=== PATIENT | female | born 1960 | race Caucasian/White ===

== ENCOUNTER 2023-10-07 11:03 | Outpatient (OUT) | payer MEDICARE, SELFPAY ==
--- NOTE | 2023-10-07 11:07 | XR_ITS ---
[address] [address] Patient Name: SONALI JERONIMO MRN: [id number] date: 1960 Sex: F Assigned Patient Location: [facility] Current Patient Location: [facility] Accession/Order Number: [id number] Exam Date: 10/07/2023 11:30 Report Date: 10/07/2023 13:51 At the request of: OJ FAYE Procedure: XR DEXA axial skeleton EXAMINATION: XR DEXA axial skeleton HISTORY: Estrogen Deficiency E28.39 COMPARISON: DEXA bone densitometry 02/02/2021 TECHNIQUE: Dual-energy X-ray absorptiometry (DXA) was performed. FINDINGS: FOREARM ANALYSIS: Average bone mineral density is 0.565 g/cm2. T-score (standard deviation relative to young adult mean): -2.1 . -7.3% change since prior study. HIP ANALYSIS: Lowest bone mineral density is within the left femoral neck, 0.670 g/cm2. T-score (standard deviation relative to young adult mean): -2.6 . -1.7% change since prior study. XR/XR DEXA axial skeleton IMPRESSION: [employer] Classification: Osteoporosis - High Fracture Risk Electronically authenticated by: FRANCISCO MURRELL Date: 10/07/2023 13:51
--- NOTE | 2023-10-07 11:07 | MM_ITS ---
Patient Name: SONALI JERONIMO MR#: [id number] : 1960 Exam Date: 10/07/2023 Ordering Doctor: DR OJ FAYE M.D. RADIOLOGY REPORT PROCEDURE: MM TOMOSYNTHESIS SCREENING BI COMPARISON: MG MAMM SCREEN 3D CULLEN CAD, 02/02/2021. MG MAMM SCREEN CULLEN W CAD, 01/24/2019. MG MAMM CULLEN SCRN W CAD DIG, 11/21/2015. INDICATIONS: Screening Calculator Name NCI Breast Cancer Risk Assessment Tool 5 Year Breast Cancer Risk 1.10% Lifetime Breast Cancer Risk 4.30% Personal Breast Cancer No Personal Ovarian Cancer No Treatments None Family Cancers Grandmother-maternal with breast cancer at age 80; Father with lung cancer at age 67. LOCATION: [facility] BREAST COMPOSITION: Heterogeneously dense,which may obscure small masses. FINDINGS: DIAGNOSTIC CATEGORY 1--NEGATIVE. RIGHT BREAST: No significant suspicious finding. No significant change has occurred. LEFT BREAST: No significant suspicious finding. No significant change has occurred. RECOMMENDATIONS: ROUTINE MAMMOGRAM AND CLINICAL EVALUATION IN 12 MONTHS. PLEASE NOTE: A NORMAL MAMMOGRAM DOES NOT EXCLUDE THE POSSIBILITY OF BREAST CANCER. A CLINICALLY SUSPICIOUS PALPABLE LUMP SHOULD BE BIOPSIED. Dictated by: Agustin Fernandez M.D. on 10/07/2023 at 15:15 Approved by: Agustin Fernandez M.D. on 10/07/2023 at 15:18
== END 2023-10-07 11:04 | disposition home or self-care (01) ==
LOC: MAMMO 11:03
PROVIDERS: PCP Family Medicine; Visit Provider Family Medicine
DX: E28.39 Other primary ovarian failure (principal); Z12.31 Encounter for screening mammogram for malignant neoplasm of breast; Z80.3 Family history of malignant neoplasm of breast; Z80.1 Family history of malignant neoplasm of trachea, bronchus and lung; M81.0 Age-related osteoporosis without current pathological fracture
CPT/HCPCS: 77063; 77067; 77080

== ENCOUNTER 2025-01-23 07:59 | Outpatient (OUT) | payer MEDICARE, SELFPAY ==
--- NOTE | 2025-01-23 08:18 | MM_ITS ---
Patient Name: SONALI JERONIMO MR#: [id number] : 1960 Exam Date: 01/23/2025 Ordering Doctor: DR OJ FAYE M.D. RADIOLOGY REPORT PROCEDURE: MM TOMOSYNTHESIS SCREENING BI COMPARISON: MM TOMOSYNTHESIS SCREENING BI, 10/07/2023. MG MAMM SCREEN 3D UCLLEN CAD, 02/02/2021. MG MAMM SCREEN CULLEN W CAD, 01/24/2019. MG MAMM CULLEN SCRN W CAD DIG, 11/21/2015. INDICATIONS: Screening Calculator Name NCI Breast Cancer Risk Assessment Tool 5 Year Breast Cancer Risk 1.10% Lifetime Breast Cancer Risk 4.20% Personal Breast Cancer No Personal Ovarian Cancer No Treatments None Family Cancers Grandmother-maternal with breast cancer at age 80; Father with lung cancer at age 67. LOCATION: [facility] BREAST COMPOSITION: The breasts are heterogeneously dense, which may obscure small masses. FINDINGS: RIGHT BREAST: No significant suspicious finding. LEFT BREAST: No significant suspicious finding. DIAGNOSTIC CATEGORY 1--NEGATIVE. RECOMMENDATIONS: ROUTINE MAMMOGRAM AND CLINICAL EVALUATION IN 12 MONTHS. PLEASE NOTE: A NORMAL MAMMOGRAM DOES NOT EXCLUDE THE POSSIBILITY OF BREAST CANCER. A CLINICALLY SUSPICIOUS PALPABLE LUMP SHOULD BE BIOPSIED. Dictated by: Jake Martinez MD on 01/23/2025 at 11:15 Approved by: Jake Martinez MD on 01/23/2025 at 11:21
== END 2025-01-23 08:00 | disposition home or self-care (01) ==
LOC: MAMMO 08:00
PROVIDERS: PCP Family Medicine; Visit Provider Family Medicine
DX: Z12.31 Encounter for screening mammogram for malignant neoplasm of breast (principal); Z80.3 Family history of malignant neoplasm of breast; Z80.1 Family history of malignant neoplasm of trachea, bronchus and lung
CPT/HCPCS: 77063; 77067